=== PATIENT | female | born 1990 | race Caucasian/White ===

== ENCOUNTER → 2023-12-06 11:10 | Outpatient (BNVA) | payer SELFPAY | PROVIDERS: PCP Nurse Practitioner Family; Visit Provider Nurse Practitioner Family | DX: F20.9 Schizophrenia, unspecified (principal); B19.20 Unspecified viral hepatitis C without hepatic coma | CPT/HCPCS: 80053; 80061; 84443; 85025; 86705; 86706; 86709; 86803; 87340; 87522; 87902 ==

== ENCOUNTER → 2024-02-28 14:15 | Outpatient (BNVA) | payer MEDICAID, SELFPAY | PROVIDERS: PCP Nurse Practitioner Family; Visit Provider Family Medicine | DX: B19.20 Unspecified viral hepatitis C without hepatic coma (principal) | CPT/HCPCS: 87522; 87806 ==

== ENCOUNTER 2024-03-08 09:55 | Emergency (ER) | payer MEDICAID, SELFPAY ==
[2024-03-08 10:08] VITALS: BP 108/88; PULSE 78; RESP 17; TEMP 36.6; O2SAT 96; BMI 34.4
--- NOTE | 2024-03-08 10:18 | XR_ITS ---
WS: [id number] XR lumbar spine 2-3V* [id number] REASON FOR EXAM: back pain FINDINGS: Normal lumbar curvatures. No focal vertebral body abnormality. Mild narrowing of the L4-L5 and L5-S1 disc spaces with mild endplate sclerosis and osteophytosis. No significant listhesis. XR/XR lumbar spine 2-3V* [id number] IMPRESSION: Mild degenerative spondylosis in the lower lumbar spine as above. No acute abno rmality.
--- NOTE | 2024-03-08 10:25 | ED_ITS ---
HPI - Back Pain/Injury General: Chief Complaint: Back Pain/Injury Stated Complaint: low back pain Time Seen by Provider: 03/08/24 10:08 Source: patient Mode of arrival: ambulatory Limitations: no limitations History of Present Illness: 33-year-old female states she has been h aving back pain over the last 2 days she is felt like she has had spasms in her back started after carrying some groceries states that its mainly on the left side and some radiation down her left leg it is worse in the morning when she wakes up and improves throughout the day denies any bowel or bladder incontinence PFS ED PFSH: Medical History History of endometriosis Migraine Insomnia Anxiety and depression Schizophrenia Surgical History History of amputation of finger partial; right hand digit 5 History of tonsillectomy History of oophorectomy removed right side from endometriosis Social History Smoking and tobacco/nicotine status: current every day tobacco/nicotine user Course Vital Signs: Vital signs: Vital Signs Temperature 97.8 F 03/08/24 10:08 Pulse Rate 78 03/08/24 10:08 Respiratory Rate 17 03/08/24 10:31 Blood Pressure 108/88 03/08/24 10:08 Pulse Oximetry 98 03/08/24 10:31 MDM - Back Pain/Injury Medical Decision Making Patient presents with back pains likely muscle spasms with sciatica did give her Decadron here we will place her on anti-inflammatories along with muscle relaxant she is to ice rash she stable for discharge follow-up with PCP return if worsening Medical Records I reviewed the patient's medical records. Labs Radiology Impressions Lumbar Spine X-Ray 03/08/24 10:18 IMPRESSION: Mild degenerative spondylosis in the lower lumbar spine as above. No acute abnormality. All radiology interpretation(s) finalized by discharge Discharge Plan Discharge Patient Disposition: Home Clinical Impression: Strain of lumbar region Condition: Stable Prescriptions: New methocarbamol 750 mg tablet 750 mg PO Q6H PRN (Reason: spasms) Qty: 20 0RF Naprosyn 500 mg tablet 500 mg PO BID PRN (Reason: pain) Qty: 20 0RF No Action clindamycin phosphate 1 % swab 1 applic topical BID Qty: 60 0RF sumatriptan succinate [Imitrex] 100 mg tablet See Rx Instructions PO .COMPLEX Qty: 10 2RF Rx Instructions: take 1 tab at onset of headache; if no relief, may repeat 1 tab after at least 2 hrs; max = 2 tabs/24 hrs PO rizatriptan 10 mg tablet,disintegrating See Rx Instructions .ROUTE .COMPLEX Rx Instructions: TAKE ONE TABLET BY MOUTH AT THE ONSET of HEADACHE; if no RELIEF MAY REPEAT ONE TABLET AFTER atleast TWO hours. Sprintec (28) 0.25-35 mg-mcg tablet 1 tab PO QAM Seroquel 50 mg tablet 50 mg PO BEDTIME Mavyret 100-40 mg tablet 3 tab PO QAM Rx Instructions: must administer with a meal/food Nurtec ODT 75 mg tablet,disintegrating 75 mg PO DAILY PRN (Reason: Headache) Discharge Orders: Discharge ED (Routine); Ordered 03/08/24 Ordered By: Waqas Salinas Referrals: Yaneli Rojas FNP [Primary Care Provider] - Discharge Diet: Advance as tolerated Discharge Activity: Resume usual activity Patient Instructions: Low Back Strain (ED) Coding Level of Care Code ED Career Placement Services Counselor for Ericka Howell
[2024-03-08] MEDS: naproxen 500 mg Tablet PO (10:29)
[2024-03-08] MEDS: dexamethasone 10 mg/mL INJ IM (10:30)
[2024-03-08] MEDS: methocarbamol 750 mg Tablet 1500 MG PO (10:30)
[2024-03-08 10:31] VITALS: RESP 17; O2SAT 98
[2024-03-08] MEDS: morphine 4 mg/mL SDV 1 mL IM (10:31)
[2024-03-08 11:47] VITALS: BP 113/75; PULSE 75; RESP 18; TEMP 36.6; O2SAT 98
== END 2024-03-08 11:48 | disposition home or self-care (01) ==
PROVIDERS: Emergency Provider Emergency Medicine; PCP Nurse Practitioner Family
DX: S39.012A Strain of muscle, fascia and tendon of lower back, initial encounter (principal); Z72.0 Tobacco use; X50.0XXA Overexertion from strenuous movement or load, initial encounter
CPT/HCPCS: 72100; 96372; 99284; J1100; J2270

== ENCOUNTER → 2024-05-04 09:47 | Outpatient (BNVA) | payer MEDICAID, SELFPAY | PROVIDERS: PCP Nurse Practitioner Family; Visit Provider Nurse Practitioner Family | DX: Z30.9 Encounter for contraceptive management, unspecified (principal); B35.1 Tinea unguium | CPT/HCPCS: 80053; 81025 ==

== ENCOUNTER 2024-06-09 11:09 | Emergency (ER) | payer MEDICAID, SELFPAY ==
[2024-06-09 11:26] VITALS: BP 148/105; PULSE 77; RESP 16; TEMP 36.8; O2SAT 99; BMI 34.4
--- NOTE | 2024-06-09 11:28 | W.ED.HA ---
HPI - Headache General: Chief Complaint: Headache Stated Complaint: migraine Time Seen by Provider: 06/09/24 11:16 Source: patient Mode of arrival: ambulatory Limitations: no limitations History of Present Illness: Patient is a 33-year-old female presents to ED today with complaint of a migraine headache. She states she has a longstanding history of migraine headaches. She states she can normally take Nurtec at home however she is out of this medication and has not scheduled for a refill until Wednesday. Earlier today she states she took an Excedrin and half of a Sumatriptan. She states at its worst her headache was a 9/10. Currently upon arrival to the emergency department she is rating it a 6/10. She is having some nausea and photophobia which are typical for her migraine headaches. Patient states she does not see a neurologist. She states her headaches are managed by her primary care provider. MD elicited complaint: migraine Pertinent past history: migraines Onset (ago): hour(s) Severity: moderate Pain scale (0-10): 6 Exacerbating factors: light and noise Relieving factors: nothing Associated symptoms: Reports nausea and photophobia; Deny chest pain, confusion, fever(s), malaise, rash or vomiting Treatments prior to arrival: prescription analgesic and migraine medication Related Data Home Medications Medication Instructions Recorded Confirmed rimegepant 75 mg disintegrating 75 mg PO DAILY PRN Headache 03/08/24 06/09/24 tablet (Nurtec ODT) quetiapine 50 mg tablet 50 mg PO QPM 06/09/24 06/09/24 terbinafine HCl 250 mg tablet 250 mg PO DAILY 06/09/24 06/09/24 Previous Rx's Medication Instructions Recorded bupropion HCl 150 mg tablet,12 hr 150 mg PO BID #60 tabs 05/04/24 sustained-release norgestimate 0.25 mg-ethinyl 1 tab PO QAM #28 tabs 05/04/24 estradiol 35 mcg tablet (Sprintec (28)) Allergies Allergy/AdvReac Type Severity Reaction Status Date / Time Penicillins Allergy unknown Verified 04/06/24 09:15 Review of Systems Const: Denies: fever(s), chills, body aches, fatigue or malaise Eyes: Reports: photophobia; Denies: change in vision, blurry vision, floaters or seeing flashes Card: Denies: chest pain Resp: Denies: dyspnea GI: Reports: nausea; Denies: vomiting Musc: Denies: neck pain Skin/Breast: Denies: rash Neuro: Reports: headache(s); Denies: weakness in extremities, lack of coordination, difficulty walking, dizziness, confusion, behavioral changes, Slurred speech present or seizure-like activity PFSH ED PFSH: Medical History History of endometriosis Migraine Insomnia Anxiety and depression Schizophrenia Surgical History History of amputation of finger partial; right hand digit 5 History of tonsillectomy History of oophorectomy removed right side from endometriosis Social History Smoking and tobacco/nicotine status: never used tobacco/nicotine Physical Exam Const: COMMON NORMALS: no acute distress, patient oriented x3, no limitations, alert and well nourished GENERAL APPEARANCE: cooperative ORIENTATION/CONSCIOUSNESS: Yes awake, Yes oriented to person, Yes oriented to place and Yes oriented to time HENMT: COMMON NORMALS: normocephalic and atraumatic HEAD & SCALP: normal to inspection, normocephalic and atraumatic FACE & SINUS: normal facial exam and face symmetric Eye: GENERAL EYE: appearance normal, both eyes and all related structures DIRECT OPHTHALMOSCOPY: Yes photophobia Neck/C-Spine: COMMON NORMALS: full ROM and no meningeal signs GENERAL: Yes normal visual inspection Neuro: MARGARET COMA SCALE: document GCS findings Margaret coma scale eye opening: Spontaneous Margaret coma scale verbal response: Orientated [place] coma scale motor response: Obey commands [place] coma scale total score: 15 COMMON NORMALS: patient oriented x3, CN's II-XII intact bilaterally, moves all extremities, no focal motor deficits and no sensory deficits noted SENSORIUM/ORIENTATION: Yes alert, Yes oriented to person, Yes oriented to place and Yes oriented to time MENINGEAL SIGNS: Yes no meningeal signs Course Vital Signs: Vital signs: Vital Signs Temperature 98.2 F 06/09/24 11:26 Pulse Rate 77 06/09/24 11:26 Respiratory Rate 16 06/09/24 11:26 Blood Pressure 148/105 06/09/24 11:26 Pulse Oximetry 99 06/09/24 11:26 Oxygen Delivery Me thod Room Air 06/09/24 11:26 MDM - Headache Medical Decision Making Patient feeling much better after IV medications. Currently rating her headache at a 0?110. Patient will be allowed discharge with return precautions. Medical Records I reviewed the patient's medical records. No radiology studies performed this visit Discharge Plan Discharge Patient Disposition: Home Clinical Impression: Migraine Qualifiers: Migraine type: migraine (< 15 days per month) without aura Status migrainosus presence: without status migrainosus Intractability: not intractable Qualified Code(s): G43.009 - Migraine without aura, not intractable, without status migrainosus Condition: Stable Prescriptions: No Action bupropion HCl 150 mg tablet sustained-release 12 hr 150 mg PO BID Qty: 60 0RF Sprintec (28) 0.25-35 mg-mcg tablet 1 tab PO QAM Qty: 28 12RF quetiapine 50 mg tablet 50 mg PO QPM terbinafine HCl 250 mg tablet 250 mg PO DAILY Nurtec ODT 75 mg tablet,disintegrating 75 mg PO DAILY PRN (Reason: Headache) Discharge Orders: Discharge ED (Routine); Ordered 06/09/24 Ordered By: Virginia Sanchez Referrals: Yaneli Rojas FNP [Primary Care Provider] - Patient Instructions: Headache - Migraine (Adult), Migraine Headache (ED), Acute Headache (DC) Coding Level of Care Code ED Edge Polisher for Ericka Howell
[2024-06-09] MEDS: ondansetron 2 mg/ML SDV 2 mL 4 MG IVP (12:05)
[2024-06-09] MEDS: ketorolac 60 mg/2 mL INJ 30 MG IVP (12:06)
[2024-06-09] MEDS: dexamethasone 10 mg/mL INJ 8 MG IVP (12:07)
[2024-06-09] MEDS: diphenhydrAMINE 50 mg/mL SDV 1mL IVP (12:08)
[2024-06-09] MEDS: valproic acid inj 500 MG in sodium chloride 0.9% 50 ML 55 MG IV (12:56)
[2024-06-09 13:38] VITALS: BP 140/103; PULSE 79; O2SAT 98
[2024-06-09 13:56] VITALS: BP 136/99; PULSE 71; O2SAT 98
== END 2024-06-09 13:58 | disposition home or self-care (01) ==
PROVIDERS: Emergency Provider Physician Assistant; PCP Nurse Practitioner Family
DX: G43.009 Migraine without aura, not intractable, without status migrainosus (principal)
CPT/HCPCS: 96374; 96375; 99284; J1100; J1200; J1885; J2405; J3490

== ENCOUNTER → 2024-06-12 08:56 | Outpatient (BNVA) | payer MEDICAID, SELFPAY | PROVIDERS: PCP Nurse Practitioner Family; Visit Provider Nurse Practitioner Family | DX: B35.1 Tinea unguium (principal) | CPT/HCPCS: 80053 ==

== ENCOUNTER → 2024-06-22 13:24 | Outpatient (BNVA) | payer MEDICAID, SELFPAY | PROVIDERS: PCP Nurse Practitioner Family; Visit Provider Family Medicine | DX: B19.20 Unspecified viral hepatitis C without hepatic coma (principal) | CPT/HCPCS: 80053; 87522 ==

== ENCOUNTER → 2024-08-28 11:09 | Outpatient (BNVA) | payer MEDICAID, SELFPAY | PROVIDERS: PCP Nurse Practitioner Family; Visit Provider Family Medicine | DX: R05.9 Cough, unspecified (principal); J10.1 Influenza due to other identified influenza virus with other respiratory manifestations | CPT/HCPCS: 87400 ==

== ENCOUNTER → 2024-10-13 15:52 | Outpatient (BNVA) | payer MEDICAID, SELFPAY | PROVIDERS: PCP Nurse Practitioner Family; Visit Provider Nurse Practitioner Family | DX: R05.9 Cough, unspecified (principal); R31.9 Hematuria, unspecified; I87.8 Other specified disorders of veins | CPT/HCPCS: 71046; 74018; 81000 ==

== ENCOUNTER → 2024-11-08 12:06 | Outpatient (BNVA) | payer MEDICAID, SELFPAY | PROVIDERS: PCP Nurse Practitioner Family; Visit Provider Nurse Practitioner Women's Health | DX: Z01.419 Encounter for gynecological examination (general) (routine) without abnormal findings (principal) | CPT/HCPCS: 82306; 82465; 83036; 83718; 83721; 84443; 86592; 86705; 86706; 86709; 86803; 87340; 87522; 87624; 87806 ==

== ENCOUNTER 2024-11-09 09:52 | Outpatient (CLI) | payer MEDICAID, SELFPAY ==
--- NOTE | 2024-11-09 10:15 | CT_ITS ---
WS: [id number] CT ABDOMEN AND PELVIS NONCONTRAST HISTORY: N20.0 - Calculus of kidney TECHNIQUE: Imaging performed through the abdomen and pelvis. Coronal and sagittal reformats are submitted. All CT scans at [facility] use at least one of these dose optimization techniques: automated exposure control; mA and/or kV adjustment per patient size (includes targeted exams where dose is matched to clinical indication); or iterative reconstruction. DLP: 709.83 mGy.cm COMPARISON: KUB 10/13/2024 Lower thorax: Lung bases are clear. Visualized heart is normal. No hiatal hernia. Liver: Normal size liver. No mass or bile duct dilatation. Gallbladder: Contracted gallbladder with stones. No evidence for acute cholecystitis. No intrahepatic bile duct dilatation. Pancreas: Normal size and attenuation. Normal pancreatic duct. No pancreatitis or mass. Spleen: Normal size with granulomata. Adrenal glands: Normal. No mass. Right kidney: Normal size kidney with no mass or hydronephrosis. No ureteral dilatation. Left kidney: Normal size kidney with no mass or hydronephrosis. No ureteral dilatation. Aorta: Normal abdominal aorta, no aneurysm or atherosclerosis. No free fluid, intraperitoneal air or significant lymphadenopathy. GI tract: Normal noncontrast imaging of the stomach, small bowel and colon. No obstruction or wall thickening. Appendix not identified. Abdominal wall: Small umbilical hernia contains fat only. Pelvis: No free fluid or adenopathy. Numerous phleboliths are present bilaterally within the pelvis. Uterus is midline and anteverted. LEFT adnexal cystic mass measures 2.9 x 2.7 cm. Most consistent with a dominant follicle. Osseous structures: LEFT unilateral L5 pars defect. CT/CT kidney stone [id number] IMPRESSION: 1. No renal calcifications or ureteral calcifications. 2. Calcifications bilaterally within the pelvis are phleboliths. 3. Appendix not identified. 4. Contracted gallbladder with cholelithiasis. No evidence for acute cholecyst itis. Ultrasound evaluation may provide additional information.
== END 2024-11-09 09:53 | disposition home or self-care (01) ==
LOC: RAD 09:53
PROVIDERS: PCP Nurse Practitioner Family; Visit Provider Nurse Practitioner Family
DX: N20.0 Calculus of kidney (principal); I87.8 Other specified disorders of veins; K80.20 Calculus of gallbladder without cholecystitis without obstruction; D73.89 Other diseases of spleen; K42.9 Umbilical hernia without obstruction or gangrene; N83.202 Unspecified ovarian cyst, left side; M43.06 Spondylolysis, lumbar region
CPT/HCPCS: 74176

== ENCOUNTER 2024-11-22 07:27 | Outpatient (CLI) | payer MEDICAID, SELFPAY ==
--- NOTE | 2024-11-22 08:00 | US_ITS ---
WS: [id number] RIGHT UPPER QUADRANT ULTRASOUND HISTORY: R10.11 - Right upper quadrant pain COMPARISON: CT 11/09/2024 Liver: 13.7 cm in length. Normal size liver and echogenicity. No bile duct dilatation or mass. Portal Vein: Normal hepatopetal flow with monophasic waveform. Gallbladder: Mildly contracted gallbladder. Gallbladder wall is mildly thickened due to contraction. CBD: 0.3 cm Pancreas: Normal size and echogenicity. Right kidney: 9.9 cm in length. Normal size and echogenicity. No hydronephrosis or mass. Aorta and IVC: Unremarkable abdominal aorta and IVC. No ascites. US/US gall bladder [id number] IMPRESSION: 1. Cholelithiasis without acute cholecystitis. Numerous stones in a slightly c ontracted gallbladder. 2. No hepatobiliary duct dilatation.
== END 2024-11-22 07:28 | disposition home or self-care (01) ==
PROVIDERS: PCP Nurse Practitioner Family; Visit Provider Nurse Practitioner Family
DX: R10.11 Right upper quadrant pain (principal); K80.20 Calculus of gallbladder without cholecystitis without obstruction
CPT/HCPCS: 76705

== ENCOUNTER → 2024-11-29 10:27 | Outpatient (BNVA) | payer MEDICAID, SELFPAY | PROVIDERS: PCP Nurse Practitioner Family; Visit Provider Nurse Practitioner Family | DX: Z71.3 Dietary counseling and surveillance (principal) | CPT/HCPCS: 80053 ==

== ENCOUNTER 2024-12-29 11:38 | Emergency (ER) | payer MEDICAID, SELFPAY ==
[2024-12-29 11:43] VITALS: BP 113/76; PULSE 90; RESP 17; TEMP 36.4; O2SAT 100; BMI 31.3
--- NOTE | 2024-12-29 12:58 | W.ED.NECK ---
HPI - Neck Pain/Injury General: Chief Complaint: Neck Pain/Injury Stated Complaint: migraine Time Seen by Provider: 12/29/24 12:49 Source: patient Mode of arrival: ambulatory Limitations: no limitations History of Present Illness: Patient is a 34-year-old female presents to ED today with a complaint of headache and neck pain. Patient states that she has a longstanding history of migraine headaches and states she has been having worsening migraines over the past month or so. She feels like her neck is tight . This too has been an ongoing issue for several months. She has been seeking resident care assistant twice weekly over the past several weeks. She states her headache/neck pain last night was more significant than normal thus prompting her emergency evaluation. She does take prophylactic and abortive migraine medication but states she is having issues with her insurance covering some of this. She states her symptoms at time of my examination (currently rating them at a 6/10) is about the same as what she has been experiencing over the past several months. She has not had any new or worsening symptoms since her chiropractor manipulation. MD complaint: neck pain and other (headache) Onset (ago): month(s) (migraines for months) Place: home Severity: moderate and similar to prior neck pain Severity scale (1-10): 6 Quality: spasming and other ( tight ) Relieving factors: other (migraine medication) Exacerbating factors: none Associated symptoms: Reports no associated symptoms and headache(s); Denies difficulty walking, dizziness or nausea Treatments prior to arrival: none Related Data Previous Rx's ?Medication ?Instructions ?Recorded quetiapine 25 mg tablet (Seroquel) 25 mg PO DAILY #90 tabs 10/05/24 quetiapine 100 mg tablet (Seroquel) 100 mg PO DAILY #90 tabs 11/06/24 quetiapine 50 mg tablet (Seroquel) 50 mg PO DAILY #90 tabs 11/06/24 norelgestromin 150 mcg-e.estradiol 1 patch transdermal Q7D #3 ea 11/08/24 35 mcg/24 hr weekly transderm patch (Xulane) rimegepant 75 mg disintegrating 75 mg PO .every 48 hours #15 tabs 12/01/24 tablet (Nurtec ODT) tirzepatide (weight loss) 7.5 See Rx Instructions .Route 12/01/24 mg/0.5 mL subcutaneous pen injector .COMPLEX #2 mL ibuprofen 800 mg tablet 800 mg PO Q8H PRN pain #20 tabs 12/29/24 methocarbamol 500 mg tablet 1,000 mg (2 x 500 mg) PO Q8H #30 12/29/24 tabs Allergies Allergy/AdvReac Type Severity Reaction Status Date / Time Penicillins Allergy unknown Verified 12/19/24 13:45 Review of Systems Const: Denies: fever(s), chills, body aches, fatigue or malaise Eyes: Denies: change in vision, blurry vision, photophobia, floaters or seeing flashes Card: Denies: palpitations, lightheadedness, syncope or pre-syncope Resp: Denies: dyspnea GI: Denies: nausea or vomiting Musc: Reports: neck pain; Denies: back pain Neuro: Reports: headache(s); Denies: numbness in extremities, weakness in extremities, sensory changes, lack of coordination, difficulty walking, dizziness, vertigo, confusion, Slurred speech present or difficulty communicating thoughts PFS ED PFSH: Medical History History of endometriosis Migraine Insomnia Anxiety and depression Schizophrenia Surgical History History of amputation of finger partial; right hand digit 5 History of tonsillectomy History of oophorectomy removed right side from endometriosis Social History Smoking and tobacco/nicotine status: current every day tobacco/nicotine user (1.5 PPD) Physical Exam Const: COMMON NORMALS: no acute distress, average body habitus, patient oriented x3, no limitations, healthy appearing, alert and well nourished GENERAL APPEARANCE: cooperative ORIENTATION/CONSCIOUSNESS: Yes awake, Yes oriented to person, Yes oriented to place and Yes oriented to time HENMT: COMMON NORMALS: normocephalic and atraumatic HEAD & SCALP: normal to inspection, normocephalic and atraumatic FACE & SINUS: normal facial exam and face symmetric Eye: COMMON NORMALS: Equal, round and reactive pupils present and EOMs intact bilaterally GENERAL EYE: appearance normal, both eyes and all related structures and normal light reflex PUPIL: Yes Equal, round and reactive pupils present DIRECT OPHTHALMOSCOPY: Yes normal light reflex OTHER: No Constantine's syndrome Neck/C-Spine: COMMON NORMALS: full ROM, no lymphadenopathy, supple, no meningeal signs, no JVD, Thyroid normal and No carotid bruits GENERAL: Yes normal visual inspection THYROID: Thyroid normal CERVICAL SPINE: Yes cervical ROM normal, No Cervical spine tenderness, No step off deformity and Yes Paracervical muscle tenderness Chest: COMMONS NORMALS: normal inspection of the chest Resp: COMMON NORMALS: normal respiratory effort and clear to auscultation bilaterally AUSCULTATION: clear to auscultation bilaterally Cardio: COMMON NORMALS: no JVD, regular rate and regular rhythm RATE: regular rate RHYTHM: regular rhythm Back/Pelvis: COMMON NORMALS: thoracic and lumbar spine normal to inspection and no thoracic nor lumbar tenderness Extremity: GENERAL: Yes normal exam except as noted OTHER: no cervical radiculopathy or weakness Neuro: MARGARET COMA SCALE: document GCS findings [place] coma scale eye opening: Spontaneous Margaret coma scale verbal response: Orientated Margaret coma scale motor response: Obey commands Margaret coma scale total score: 15 COMMON NORMALS: patient oriented x3, CN's II-XII intact bilaterally, moves all extremities, no focal motor deficits, no sensory deficits noted and gait normal SENSORIUM/ORIENTATION: Yes alert, Yes oriented to person, Yes oriented to place and Yes oriented to time MENINGEAL SIGNS: Yes no meningeal signs SPEECH: speech normal GAIT: Yes Normal gait present MOTOR EXAM: 5/5 motor strength present throughout Skin: COMMON NORMALS: no rashes or lesions noted GENERAL SKIN EXAM: no rashes or lesions noted Course Vital Signs: Vital signs: Vital Signs Temperature 97.5 F L 12/29/24 11:43 Pulse Rate 67 12/29/24 14:39 Respiratory Rate 16 12/29/24 14:39 Blood Pressure 115/78 12/29/24 14:39 Pulse Oximetry 98 12/29/24 14:39 Oxygen Delivery Me thod Room Air 12/29/24 11:43 MDM - Neck Pain/Injury Medical Decision Making Symptoms today seem to be consistent with the symptoms she has had over the past several weeks/months. She is not having any new symptoms since her recent chiropractor manipulation. At this time I do not suspect any vascular dissection. She got significant relief from IM medications given here. Will place on NSAIDs/muscle relaxers as I feel her neck pain is more musculoskeletal. She is agreeable to follow-up with primary care next week. Medical Records I reviewed the patient's medical records. Lab Data Radiology Impressions Cervical Spine X-Ray 12/29/24 13:12 Impression: Negative cervical spine. All radiology interpretation(s) finalized by discharge Discharge Plan Discharge Patient Disposition: Home Clinical Impression: Migraine, Musculoskeletal neck pain Condition: Stable Prescriptions: New methocarbamol 500 mg tablet 1,000 mg PO Q8H Qty: 30 0RF ibuprofen 800 mg tablet 800 mg PO Q8H PRN (Reason: pain) Qty: 20 0RF No Action quetiapine [Seroquel] 25 mg tablet 25 mg PO DAILY Qty: 90 1RF Rx Instructions: take with seroquel 150mg norelgestromin-ethin.estradiol [Xulane] 150-35 mcg/24 hr patch weekly 1 patch transdermal Q7D Qty: 3 10RF Rx Instructions: allow for early refills for continuous cycling tirzepatide (weight loss) 7.5 mg/0.5 mL pen injector See Rx Instructions .ROUTE .COMPLEX Qty: 2 1RF Dose Instruction: INJECT 5MG SUBCUTANEOUSLY WEEKLY Rx Instructions: INJECT 7.5MG SUBCUTANEOUSLY WEEKLY Nurtec ODT 75 mg tablet,disintegrating 75 mg PO .every 48 hours Qty: 15 5RF quetiapine [Seroquel] 100 mg tablet 100 mg PO DAILY Qty: 90 1RF Rx Instructions: take with 50mg to equal 150mg quetiapine [Seroquel] 50 mg tablet 50 mg PO DAILY Qty: 90 1RF Rx Instructions: take with seroquel 100mg to equal 150mg Discharge Orders: Discharge ED (Routine); Ordered 12/29/24 Ordered By: Virginia Sanchez Referrals: Yaneli Rojas, [facility] [Primary Care Provider, Family Practice] Activity Restrictions/Additional Instructions: As we discussed, please follow-up with primary care next week for further evaluation of symptoms. You may return to the emergency department at anytime for any further concerns you may have. Print Language: Arabic Coding Level of Care Code ED Nurse Discharge Planner for Ericka Howell
[2024-12-29] MEDS: ketorolac 30 mg/mL INJ 60 MG IM (13:12)
[2024-12-29] MEDS: dexamethasone 10 mg/mL INJ IM (13:12)
[2024-12-29] MEDS: orphenadrine 30 mg/mL Inj 2 mL 60 MG IM (13:12)
--- NOTE | 2024-12-29 13:12 | XR_ITS ---
WS: [id number] Cervical spine, 4 views, 12/29/2024 Clinical Data: neck pain Comparison: Cervical spine, 02/14/2006 Findings: No compression fractures are seen. The disc heights are normal. There is no prevertebral soft tissue swelling. The odontoid is unremarkable. The soft tissues of the neck and the lung apices are normal. XR/XR cervical spine 3V* [id number] Impression: Negative cervical spine.
[2024-12-29 14:39] VITALS: BP 115/78; PULSE 67; RESP 16; O2SAT 98
== END 2024-12-29 14:44 | disposition home or self-care (01) ==
PROVIDERS: Emergency Provider Physician Assistant; PCP Nurse Practitioner Family
DX: G43.909 Migraine, unspecified, not intractable, without status migrainosus (principal); M54.2 Cervicalgia; F17.210 Nicotine dependence, cigarettes, uncomplicated
CPT/HCPCS: 72040; 96372; 99284; J1100; J1885; J2360

== ENCOUNTER 2025-01-15 09:19 | Day surgery (SDC) | payer MEDICAID, SELFPAY ==
[2025-01-15] VITALS (19 sets, daily range): BP systolic 101–133; BP diastolic 56–80; PULSE 67–84; RESP 16–27; TEMP 36.1–37.1; O2SAT 93–100; BMI 31.3
[2025-01-15 10:01] LABS: OR HCG Qualitative Urine Negative (Negative)
--- NOTE | 2025-01-15 10:04 | P.ANESASSM_ITS ---
Pre-Anesthetic Assessment Height/Weight: Height 5 ft 7 in Weight 200 lb Temp Pulse Resp BP Pulse Ox O2 Del Method 98.8 F 70 16 122/77 98 Room Air 01/15/25 09:27 01/15/25 09:27 01/15/25 09:27 01/15/25 09:27 01/15/25 09:27 01/15/25 09:50 Preop Diagnosis: chronic cholecystitis Operation Date: 01/15/25 10:50 Proposed Procedures p Laparoscopic POSSIBLE OPEN Cholecystectomy 55119 K82.9(Not Applicable) - Nazario Gregory MD Was Beta [place] taken within 24 hours: N/A Was Clonidine taken within 24 hours: N/A Last intake: Intake Last Liquid Date 01/14/25 Last Liquid Time 17:00 Last Solid Date 01/14/25 Last Solid Time 21:00 Social Tobacco and No alcohol Exam alert, oriented x 3, clear to auscultation bilaterally and regular rate & rhythm Airway Submandibular: within normal limits Cervical ROM: within normal limits Mallampati: Class III Dentition: full Anesthetic Plan ASA status: 3 Anesthesia: General Other: No prior issues with anesthesia NPO since yesterday evening. History of schizophrenia Patient takes Mounjaro for weight loss. Last taken 6 days ago. Kssyq-lp-[id number] ultrasound performed at bedside in preop. Grade 1 stomach Plan for GETA with RSI Medications/Allergies Home Medications ?Medication ?Instructions ?Recorded ?Confirmed ?Last Taken ?Type quetiapine 25 mg tablet (Seroquel) 25 mg PO DAILY #90 tabs 10/05/24 01/15/25 01/14/25 Rx quetiapine 100 mg tablet (Seroquel) 100 mg PO DAILY #9 0 tabs 11/06/24 01/11/25 01/14/25 Rx quetiapine 50 mg tablet (Seroquel) 50 mg PO DAILY #90 tabs 11/06/24 01/11/25 01/14/25 Rx norelgestromin 150 mcg-e.estradiol 1 patch transdermal Q7D #3 ea 11/08/24 01/11/25 01/10/25 Rx 35 mcg/24 hr weekly transderm patch (Xulane) rimegepant 75 mg disintegrating 75 mg PO .every 48 tessa rs #15 tabs 12/01/24 01/11/25 01/14/25 [facility] diclofenac sodium 75 mg 75 mg PO BID PRN pain #60 ta bs 01/03/25 01/11/25 Rx tablet,delayed release methocarbamol 500 mg tablet 1,000 mg (2 x 500 mg) PO Q 8H #90 01/03/25 01/11/25 01/14/25 Rx tabs prednisone 20 mg tablet 20 mg PO BID #10 tabs 01/11/25 Unknown Rx tirzepatide (weight loss) 7.5 7.5 mg SUBCUT .WEEK 12/3101/11/25 01/09/25 History mg/0.5 mL subcutaneous pen injector Allergies Allergy/AdvReac Type Severity Reaction Status Date / Time Penicillins Allergy unknown Verified 01/03/25 08:08 [facility] Anesthesia Medical History History of endometriosis Migraine Insomnia Anxiety and depression Schizophrenia Surgical History History of amputation of finger partial; right hand digit 5 History of tonsillectomy History of oophorectomy removed right side from endometriosis Social History Smoking and tobacco/nicotine status: current every day tobacco/nicotine user (1.5 PPD)
--- NOTE | 2025-01-15 10:50 | W.PM.OPSUD ---
Surgery/Procedure H&P Update DATE OF PROCEDURE: January 15, 2025 DATE H&P PERFORMED: 01/03/25 H&P UPDATE INFORMATION: I have reviewed H&P completed within last 30 days, I have examined patient prior to procedure, No changes to prior documentation, Changes to prior documentation as noted here and Risks and benefits of the procedure reviewed PREOP DIAGNOSIS: chronic cholecystitis PLANNED PROCEDURE: Operation Date: 01/15/25 10:50 Proposed Procedures p Laparoscopic POSSIBLE OPEN Cholecystectomy 22730 K82.9(Not Applicable) - Nazario Gregory MD
[2025-01-15] MEDS: sodium chloride 0.9% 1,000 ML 30 ML IV (10:56)
[2025-01-15] MEDS: VANCOMYCIN ADD-Vantage 1,000 MG in 0.9% NaCl ADD-Vantage 250 ML 250 MG IV (10:56)
[2025-01-15] MEDS: scopolamine 1 mg PATCH 1 PATCH TRANSDERMA (11:06)
[2025-01-15] MEDS: lidocaine-epi 1% 20 mL INJ 10 ML INJECTION (12:58)
[2025-01-15] MEDS: BUPivacaine 0.25% INJ 10 mL INJECTION (12:59)
--- NOTE | 2025-01-15 13:01 | P.OP_ITS ---
Operative Report Date of procedure: January 15, 2025 Pre-op diagnosis: Symptomatic cholelithiasis Post-op findings: Normal biliary anatomy, chronic inflammatory changes at the level of the hepatocystic triangle Procedure done: Laparoscopic cholecystectomy Specimens removed/disposition: Gallbladder Surgeon: Nazario Gregory MD Sodium Methylate Operator: HAMIDA OR Staff Estimated blood loss: 5 Brief History: 34-year-old female with history of biliary colic who presents for cholecystectomy. After discussion of all risk benefits of decided to proceed with a lap jyoti Procedure: Patient was brought into the OR, she was placed in a supine position. General anesthesia was given. The abdomen was prepped and draped in the usual sterile fashion. A timeout was conducted. I accessed the abdomen via a 5 mm Optiview port in the left upper quadrant. Initial pneumoperitoneum was obtained and no evidence of visceral injury during entry was noted. At 12 mm trocar was placed in the supraumbilical position under direct visualization. Additional 5 mm trocars were placed in the epigastrium right upper quadrant and right flank under direct visualization. The gallbladder was grasped from the fundus and retracted cephalad, I then grasped the infundibulum and retracted in the inferolateral direction exposing the hepatocystic triangle. The peritoneum anterior to the hepatocystic triangle was opened with electrocautery, I carried this opening in the medial and lateral direction to the edges of the liver and then on the sides of the gallbladder to allow for better exposure. With careful blunt dissection as well as electrocautery I was able to encircle the cystic duct and artery, I also elevated lower third of the gallbladder from the liver bed, thus creating a critical view of safety. The cystic duct and artery were double clipped proximally and single clipped distally and transected. The gallb ladder was removed from the liver bed using electrocautery. The gallbladder was retrieved in an Endo Catch bag via the umbilical trocar site. The liver bed and clips were inspected the area was hemostatic, there was no evidence of bile leak the clips appeared to be in good position. The liver bed was irrigated and suctioned. The umbilical trocar was removed and umbilical trocar site was closed with a 0 Vicryl Spike-Brianna suture passer under direct visualization. The epigastrium right upper quadrant right flank trocars were removed under direct visualization, the left upper quadrant trocar was used to evacuate the pneumoperitoneum and subsequently removed. Local anesthesia was infiltrated. Hemostasis was achieved from the trocar sites. The wounds were closed in layers using #3-0 Vicryl for the subcutaneous tissue #4 Monocryl for the skin. At the end of the procedure all counts were correct, the patient tolerated well the procedure was transferred to the PACU in stable condition.
[2025-01-15] MEDS: ondansetron 2 mg/ML SDV 2 mL 4 MG IVP (13:27)
[2025-01-15] MEDS: HYDROmorphone 1 mg/mL INJ 1ml 0.5 MG IVP ×2 (13:36→13:47)
[2025-01-15] MEDS: oxyCODONE 5 mg IR Tab/Cap PO (14:30)
--- NOTE | 2025-01-15 15:06 | ANE.PACU2 ---
Inpatient post-anesthesia follow up: Airway intact: Yes Vital signs: Temperature 97 F Pulse Rate 75 Respiratory Rate 16 Blood Pressure 133/71 Pulse Oximetry 98 Oxygen Delivery Me thod Room Air Oxygen Flow Rate Fraction of Inspir ed Oxygen Hydration adequate: Yes Nausea and vomiting: No Pain level: 2 Mental status: Baseline
== END 2025-01-15 15:15 | disposition home or self-care (01) ==
PROVIDERS: Student in an Organized Health Care Education/Training Program; PCP Nurse Practitioner Family; Visit Provider Surgery
PROC: 0FT44ZZ Resection of Gallbladder, Percutaneous Endoscopic Approach (ICD-10-PCS; CPT 47562; principal; 2025-01-15 10:40)
DX: K80.10 Calculus of gallbladder with chronic cholecystitis without obstruction (principal); Z86.59 Personal history of other mental and behavioral disorders; F17.200 Nicotine dependence, unspecified, uncomplicated
CPT/HCPCS: 47562; 81025; 88304; A4216; J0330; J1100; J1171; J1885; J2250; J2405; J2704; J3010; J3370; J3490; J7030; J7050; J9999

== ENCOUNTER → 2025-02-22 14:12 | Outpatient (BNVA) | payer MEDICAID, SELFPAY | PROVIDERS: PCP Nurse Practitioner Family; Visit Provider Nurse Practitioner Family | DX: B35.1 Tinea unguium (principal) | CPT/HCPCS: 80053 ==

== ENCOUNTER → 2025-05-03 15:08 | Outpatient (BNVA) | payer MEDICAID, SELFPAY | PROVIDERS: PCP Nurse Practitioner Family; Visit Provider Nurse Practitioner Family | DX: B19.20 Unspecified viral hepatitis C without hepatic coma (principal) | CPT/HCPCS: 80053 ==

== ENCOUNTER 2025-05-16 11:26 | Emergency (ER) | payer MEDICAID, SELFPAY ==
--- OUTSIDE RECORDS SUMMARY | 2024-01-22 04:00 | XMS_ITS ---
Author Organization [facility] Address [address] [place] [address] Care Team Providers Care Transactional Attorney Name Role Phone Alejandra Kam APN Primary Care Provider Tucker Elliott Unavailable [phone] Migration, Provider Unavailable Unavailable REASON FOR VISIT EMR-Jose E Encounters Encounter Location Date Provider Diagnosis Migrated_Facility 0 0 01/22/2024 Provider Migration Plan Of Treatment No Information Progress Notes * Ирина VAUGHAN EDOB: 9 (34 yo F)Acc No.[id number]:01/22/2024 Patient: Mynor CUEVASИрина WICK :1990 A ge:33 Y S ex:Female Address:[address] [place] [address] Subjective: * Chief Complaints: * E MR-Jose E * * Date:
--- OUTSIDE RECORDS SUMMARY | 2024-01-23 04:00 | XMS_ITS ---
Author Organization [facility] Address [address] [facility] [place] [address] Care Team Providers Care Supervisor Special Education Name Role Phone Alejandra Kam APN Primary Care Provider Tucker Elliott Unavailable [phone] Migration, Provider Unavailable Unavailable Allergies Allergen (clinical [...] MG Oral Tablet [Seroquel] ORAL *Reorder from [facility] for eRx and Interaction Alerts* 01/04/2019 Active ropinirole 0.5 MG Oral Tablet ORAL *Reorder from [facility] for eRx and Interaction Alerts* 01/04/2019 Active Citalopram 40 MG Oral Tablet ORAL *Reorder from [facility] for eRx and Interaction Alerts* 01/04/2019 Active [...] Ирина VAUGHAN EDOB: 9 (34 yo F)Acc No.[id number]:01/23/2024 Patient: Ирина BRADY :1990 A ge:33 Y S ex:Female Address:[address] [place] [address], [place] [address] Subjective: * Chief Complaints: * E MR-Jose [...] ORAL , Notes to Pharmacist: *Reorder from [facility] for eRx and Interaction Alerts*Citalopram 40 MG Oral Tablet ORAL , Notes to Pharmacist: *Reorder from [facility] for eRx and Interaction Alerts*quetiapine 200 MG Oral Tablet [Seroquel] ORAL , Notes to Pharmacist: *Reorder from [facility] for eRx and Interaction Alerts*Taking Fluconazole 150 MG Tablet Oral , stop date 01/06/2019Taking Nitrofurantoin Macrocrystal 100 MG Capsule Oral , stop date 01/28/2019Taking ropinirole 0.5 MG Oral Tablet ORAL , Notes to Pharmacist: *Reorder from [facility] for eRx and Interaction Alerts*Taking Citalopram 40 MG Oral Tablet ORAL , Notes to Pharmacist: *Reorder from [facility] for eRx and Interaction Alerts*Taking quetiapine 200 MG Oral Tablet [Seroquel] ORAL , Notes to Pharmacist: *Reorder from [facility] for eRx and Interaction Alerts* * Allergies: P enicillin V Potassium: Allergy - Onset Date 01/04/2019Penicillin: Allergy * * Date:
[2025-05-16 11:30] VITALS: BP 154/83; PULSE 95; RESP 16; TEMP 36.8; O2SAT 100; BMI 32.8
--- OUTSIDE RECORDS SUMMARY | 2025-05-16 11:57 | XMS_ITS | Encounter Summary ---
Author Organization [facility] Address [address] [place] [address] Care Team Providers Care Supervisor Electron Tube Processing Name Role Phone Nazario Tovar DO Primary Care Provider [phone] Encounter Details Date Type Department Care Team (Late st Contact Info) Description 07/07/2004 Emergency [facility] Emergency Department [address] [place] [address] Nat Raman MD [address] [place] [id number] SPRAIN OF NECK (Primary Dx) Social History Tobacco Use Types Packs/Day Years Used Date Smoking Tobacco: Never Assessed Comments Unknown Sex and Gender Information Value Date Recorded Sex Assigned at Not on file Legal Sex Female 3:13 AM [employer] Gender Identity Not on file Sexual Orientation Not on file documented as of this encounter Plan of Treatment Not on file documented as of this encounter Visit Diagnoses Diagnosis Sprain of neck- Primary documented in this encounter Care Teams Supervisor Electron Tube Processing Relationship Specialty Start Date End Date Nazario Tovar DO [address] [place] [address] PCP - General 07/07/04 02/22/18 documented as of this encounter
--- OUTSIDE RECORDS SUMMARY | 2025-05-16 11:58 | XMS_ITS | Patient Health Record ---
Author Organization [facility] Address [address] [place] [address] Care Team Providers Care Cloth Winder Name Role Phone Alejandra Kam APN Primary Care Provider Tucker Elliott Unavailable [phone] Allergies Allergen (clinical drug ingredient) Drug/Non Drug Allergy documented on EMR Reaction Allergy Type Onset Date Status penicillin V Penicillin V Potassium Unknown Drug Allergy 0 01/04/2019 active Penicillin Unknown Drug Allergy Active Reason For Referral No Information Medications Medication SIG (Take, Route, Frequency, Duration) Notes Start Date End Date Status quetiapine 200 MG Oral Tablet [Seroquel] ORAL *Reorder from [facility] for eRx and Interaction Alerts* 01/04/2019 Active ropinirole 0.5 MG Oral Tablet ORAL *[facility] Alert[facility]* 01/04/2019 Active Citalopram 40 MG Oral Tablet ORAL *Reorder from [facility] for eRx and Interaction Alerts* 01/04/2019 Active Doxycycline Hyclate 100 MG Capsule 1 capsule Orally Twice a day; Duration: 10 day(s) 07/04/2020 Active Flagyl 500 MG Tablet 1 tablet Orally twice a day; Duration: 10 day(s) 07/04/2020 Active Phentermine HCl 37.5 MG Tablet 1 tablet Orally Once a day Active Colace 100 MG Capsule 1 capsule as needed Orally twice a day; Duration: 30 day(s) 07/04/2020 Active Immunizations Vaccine Route Administration Date Status Comme nts Influenza (whole), CPT 96406 Inactive Unknown 05/04/2019 Administered Social History Tobacco Use: Social History Observation Description Date Details (start date - stop date) Current Smoker NA - NA Social History Depression Screening Social Info Question Answer Notes PHQ-9 Little interest or pleasure in doing thin gs Not at all Feeling down, depressed, or hopeless Not at all Trouble falling or staying asleep, or sleeping t oo much Not at all Feeling tired or having little energy Not at all Poor appetite or overeating Not at all Feeling bad about yourself, or that you are a failure, or have let yourself or your family down Not at all Trouble concentrating on thi ngs, such as reading the newspaper or watching television Not at all Moving or speaking so slowly that other people could have noticed. Or the opposite ? being so fidgety or restless that you have been moving around a lot more than usual Not at all Thoughts that you would be b srinivas off , or of hurting yourself in some way Not at all Total Score 0 Drugs/Alcohol: Social Info Question Answer Notes Alcohol Screen (Audit-C) Did you have a drink containing alcohol in the past year? Yes How often did you have a drink containing alcohol in the past year? 4 or more times a week (4 points) How many drinks did you have on a typical day when you were drinking in the past year? 1 or 2 drinks (0 point) How often did you have 6 or more drinks on one occasion in the past year? Never (0 point) Points 4 Interpretation Positive Drugs Have you used drugs other than those for medical reasons in the past 12 months? No Tobacco Use: Social Info Question Answer Notes xTobacco Use/Smoking Are you a current smoker How often do you smoke cigarettes? every day How many cigarettes a day do you smoke? 11-20 How soon after you wake up do you smoke your first cigarette? 31-60 minutes Are you interested in quitting? Not ready to quit Additional Details Category Social Info Options Details Migrated Social History Migrated Social History History of tobacco use : Current every day smoker , Alcohol intake : , Smoking Status : Current every day smoker zzMigrated Social History Migrated Social History Smoking Status:Smokes tobacco daily (finding) Problems Problem Type SNOMED Code ICD Code Onset Dates Problem Status W/U Status Risk Notes Problem Dyspareunia (42532988) Dyspareunia (N94.1) Active confirmed Problem Dysuria (00150196) Dysuria (R30.0) Active confirmed Problem Female urinary stress incontinence (07734438) PAYAM (stress urinary incontinence, female) (N39.3) Active confirmed Problem Vaginal odor (897643722) Vaginal odor (N89.8) Active confirmed Problem Cigarette smoker (88349469) Cigarette smoker (F17.210) Active confirmed Problem Vaginal pain (16470283) Vaginal pain (R10.2) Active confirmed Problem Constipation (92019051) Constipation (K59.00) Active confirmed Problem Vaginal discharge (912547317) Vaginal discharge (N89.8) Active confirmed Problem Female pelvic inflammatory disease (417043788) PID (pelvic inflammatory disease) (N73.9) Active confirmed Plan Of Treatment Pending Test Test Name Order Date Estradiol Level 79110 02/20/2020 Follicle Stimulating Hormone (FSH) 66724 02/20/2020 SYPHILIS TEST, QUAL (RPR) 42635 02/20/20 20 Thyroid Stimulating Hormone (TSH) 31353 02/20/2020 HIV 1/2 Ag/Ab Screen--[id number] 2019 Insurance Providers Payer Name Payer Address Payer Phone Subscriber Number Group Number Insured Name Patient Relationship to Insured Coverage Start Date Coverage End Date [place] [address] [place] [phone] [id number] Ирина Cooper Self - patient is the insured 0 [place] [address] [place] [phone] [id number] Ирина Cooper Self - patient is the insured 0 Medications Administered Medication Instructions Date of Administration Dosage Notes Ceftriaxone 07/04/2020 1 g Medical (General) History Medical History History ICD Code Morbid obesity Tobacco user Surgical History Surgery Date(Month/Year) left oophorectomy kidney stone 2019 tonsillectomy 2000 right finger 1994 Hospitalization History Reason Date(Month/Year) see surgical list
--- OUTSIDE RECORDS SUMMARY | 2025-05-16 11:58 | XMS_ITS | Clinical Summary ---
Author Organization [facility] Address [address] [place] [address] Phone Care Team Providers Care Refinery Operator Helper Crude Unit Name Role Phone Unavailable Primary Care Provider Unavailabl e Allergies Active Allergy Reactions Criticality Noted Date Comments Penicillins Rash Low 02/23/2018 Medications QUEtiapine (SEROquel) 200 mg tablet Take 1 Tablet (200 mg) by mouth daily at bedtime. 30 Tablet 1 10/12/2018 10:05 AM CDT 10/12/2018 Active ARIPiprazole (ABILIFY) 5 mg tablet Take 1 Tablet (5 mg) by mouth daily at bedtime. 30 Tablet 1 10/12/2018 10:05 AM CDT 10/12/2018 Active Active Problems Problem Noted Date Diagnosed Date Bipolar affective disorder, currently manic, mod erate 10/09/2018 Immunizations Immunization Administration Dates Next Due (ADACEL/BOOSTRIX)(10 YR UP) TDAP VACCINE, 0.5ML, IM 09/02/2018 (M-M-R II/PRIORIX)(12 MO UP) MEASLES, MUMPS AND RUBELLA VIRUS VACCINE, 0.5 ML IM/SUBCUT 08/12/1994,04/20/1991 (TDVAX)(7 YRS UP) TETANUS AN D DIPHTHERIA TOXOIDS, ADSORBED (2 LF OF TETANUS TOXOID AND 2 LF OF DIPHTHERIA TOXOID), 0.5ML (PF), IM 10/08/2004 Dt Dtp Dtap Vaccine 08/12/1994, 0,04/22/1990,1989 HIB, Unspecified Formulation 08/12/1994,06/10/19 90,04/20/1990 Hepatitis A Vaccine 10/16/1998,05/20/1998,1997 Hepatitis B Vaccine 03/16/1995,09/23/1994,1994 IPV/OPV 08/12/1994, 0,04/22/1990,1989 Social History Tobacco Use Types Packs/Day Years Used Date Smoking Tobacco: Every Day Cigarettes Smokeless Tobacco: Never Alcohol Use Standard Drinks/Week Comments Yes 0 (1 standard drink = 0.6 oz pur e alcohol) 3 times per week Comments No Sex and Gender Information Value Date Recorded Sex Assigned at Not on file Legal Sex 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 Gender Identity Not on file Sexual Orientation Not on file Last Filed Vital Signs Vital Sign Reading Time Taken Comments Blood Pressure 132/88 10/11/2018 8:00 PM CDT Pulse 81 10/11/2018 8:00 PM CDT Temperature 37.2 C (99 F) 10/11/2018 8:00 PM CDT Respiratory Rate 17 10/11/2018 8:00 PM CDT Oxygen Saturation 99% 10/11/2018 8:00 PM CDT Inhaled Oxygen Concentration - - Weight 88.7 kg (195 lb 9.6 oz) 10/08/2018 12:00 AM HEAVY EQUIPMENT SALES MANAGER Height 170.2 cm (5' 7 ) 10/08/2018 12:00 AM HEAVY EQUIPMENT SALES MANAGER Body Mass Index 30.64 10/08/2018 12:00 AM HEAVY EQUIPMENT SALES MANAGER Plan of Treatment Health Maintenance Due Date Last Done Comments HPV/Cotest (21-29) 2010 HPV VACCINES (1 - 3-dose SCD M series) 2016 CERVICAL CANCER SCREENING 2019 HPV/Cotest (30-65) 2019 PAP SMEAR 2019 INFLUENZA VACCINE (#1) 2025 DTAP/TDAP/TD VACCINES (6 - T d or Tdap) 09/02/2028 09/02/2018, 10/08/2004, 08/12/1994, Additional history exists HEPATITIS B VACCINES Completed 03/16/1995, 09/23/1994, 08/12/1994 [place] Advance Directives For more information, please contact: [phone] * Full Code (Latest Code Status on File) Date Activated Date Inactivated Comments 10/08/2018 1:06 AM 10/12/2018 2:32 PM
--- OUTSIDE RECORDS SUMMARY | 2025-05-16 11:58 | XMS_ITS | Clinical Summary ---
Author Organization [email or web address] Address [address] [facility] Attn: Epic Prelude ADT MELINDA MARY [address] Care Team Providers Care Pan Devulcanizer Name Role Phone Unavailable Primary Care Provider Unavailabl e Allergies Active Allergy Reactions Criticality Noted Date Comments Penicillins Rash Low 02/23/2018 Medications ARIPiprazole (ABILIFY) 5 mg tablet Take 1 Tablet (5 mg) by mouth daily at bedtime. 30 Tablet 1 10/12/2018 Active QUEtiapine (SEROquel) 200 mg tablet Take 1 Tablet (200 mg) by mouth daily at bedtime. 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
--- OUTSIDE RECORDS SUMMARY | 2025-05-16 11:58 | XMS_ITS | Patient Health Record ---
Author Organization [facility] Address [address] [place] [id number] Care Team Providers Care Manager Care Name Role Phone Gary Adilia Primary Care Provider [phone] Allergies Allergen (clinical drug ingredient) Drug/Non Drug Allergy documented on EMR Reaction Allergy Type Onset Date Status Penicillin G Benzathine Unknown Drug Allergy Active Reason For Referral No Information Medications Medication SIG (Take, Route, Frequency, Duration) Notes Start Date End Date Status Citalopram Hydrobromide 40 MG Oral; Duration: 30 days [facility] Not-Taking Tessalon Perles 100 MG 1 capsule as needed Orally Three times a day; Duration: 5 days 01/23/2020 Not-Taking Multivitamins one tablet Orally daily Active Ibuprofen 800 MG 1 tablet with food or milk as needed Orally three times a day (tid) as needed (prn) PRN Active Phentermine HCl 37.5 MG 1 capsule Orally Once a day; Duration: 30 days Active cyclobenzaprine hcl 10 MG 1 tablet Orally Three times a day as needed; Duration: 7 days 04/09/2020 Active Omeprazole 20 MG 1 capsule 30 minutes before morning meal Orally Once a day; Duration: 30 day(s) 03/06/2020 Active Terbinafine 1 % as directed Externally twice a day (bid); Duration: 30 days 09/29/2016 Not-Taking Fluticasone Propionate 50 MCG/ACT 1 spray in each nostril Nasally Once a day; Duration: 30 day(s) Not-Taking flonase allergy relief 50 MCG/ACT 1 puff in each nostril Nasally Once a day; Duration: 30 day(s) 12/06/2015 Not-Taking Azithromycin 250 MG 2 tablet on the first day, then 1 tablet amira Orally Once a day; Duration: 5 day(s) Not-Taking Milk of Magnesia 1200 MG/15ML 15 ml as needed Orally Four times a day; Duration: 5 days 08/14/2015 Not-Taking Mirtazapine 30 mg 1 tablet at bedtime Orally Once a day; Duration: 30 day(s) pt states making legs swell 11/12/2017 Not-Taking Immunizations Vaccine Route Administration Date Status Comme nts Flu Vac Quad 0.5 PRIVATE IM Intramuscular 06/21/2015 Admin istered Social History Tobacco Use: Social History Observation Description Date Details (start date - stop date) Current Smoker NA - NA Sex Assigned At : Social History Observation Description Sex Assigned At Female - Question Answer Notes Did you have a drink contain ing alcohol in the past year? Yes How often did you have a dri nk containing alcohol in the past year? Two to three times a week (3 points) How often did you have six o r more drinks on one occasion in the past year? Never (0 points) Points 3 Interpretation Positive HARMONY Drug Questionnaire Question Answer Notes Have you used drugs other th an those for medical reasons in the past 12 months? No Do you smoke for age 13 and up Question Answer Notes Are you a: current smoker How often do you smoke cigarettes? every day How many cigarettes a day do you smoke? 11-20 How soon after you wake up do you smoke your fir st cigarette? 6-30 minutes Smokeless Tobacco Question Answer Notes Tobacco use other than smoking No Have you ever had an STD Question Answer Notes Have you ever had an STD No Prevention Strategies Discussed Other Problems Problem Type SNOMED Code ICD Code Onset Dates Problem Status W/U Status Risk Notes Problem Social phobia (83771208) Social phobia (300.23) Active confirmed Problem Infectious hepatitis (50461057) Hepatitis in other infectious diseases classified elsewhere (573.2) Active confirmed Problem Anemia (535534293) Anemia, unspecified (285.9) Active confirmed Problem Gastroesophageal reflux disease (416505564) GERD (gastroesophageal reflux disease) (K21.9) Active confirmed Problem Obesity (065412661) Obesity (E66.9) Active conf irmed Problem Dysmenorrhea (441233893) Dysmenorrhea (N94.6) Active confirmed Problem Hallucinations (3130307) Hallucinations (R44.3) Active confirmed Problem Primary insomnia (6802695) Primary insomnia (F51.01) Active confirmed Problem Insomnia (124242298) Insomnia, unspecified type (G47.00) Active confirmed Problem Migraine without aura (10961155) Migraine without aura and with status migrainosus, not intractable (G43.001) Active confirmed Problem Chronic hepatitis C (407256443) Chronic hepatitis C without hepatic coma (B18.2) Active confirmed Problem Methamphetamine abuse (192836210) Methamphetamine abuse (F15.10) Active confirmed Plan Of Treatment No Information Insurance Providers Payer Name Payer Address Payer Phone Subscriber Number Group Number Insured Name Patient Relationship to Insured Coverage Start Date Coverage End Date [facility] Private Option [address] [place] [id number] Ирина Cooper Self - patient is the insured Medicaid [address] [place] [id number] Ирина Cooper Self - patient is the insured Medications Administered Medication Instructions Date of Administration Dosage Notes Toradol 06/21/2015 60 mg Toradol 04/09/2020 60 mg Medical (General) History Surgical History Surgery Date(Month/Year) tonsillectomy finger surgery Hospitalization History Reason Date(Month/Year) surgery childbirth
[2025-05-16] MEDS: diphenhydrAMINE 50 mg/mL SDV 1mL 25 MG IVP (12:11)
[2025-05-16 12:29] VITALS: BP 114/85; PULSE 82; RESP 16; O2SAT 98
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
[2025-05-16 14:50] VITALS: BP 128/72; PULSE 82; RESP 16; TEMP 36.8; O2SAT 99
== END 2025-05-16 14:50 | disposition home or self-care (01) ==
PROVIDERS: Emergency Provider Student in an Organized Health Care Education/Training Program; PCP Nurse Practitioner Family
DX: S16.1XXA Strain of muscle, fascia and tendon at neck level, initial encounter (principal); R51.9 Headache, unspecified; Z72.0 Tobacco use; X58.XXXA Exposure to other specified factors, initial encounter
CPT/HCPCS: 96374; 96375; 99284; J0780; J1200; J7030; J9999

== ENCOUNTER 2025-05-18 22:15 | Emergency (ER) | payer MEDICAID, SELFPAY ==
--- OUTSIDE RECORDS SUMMARY | 2024-01-22 04:00 | XMS_ITS ---
Author Organization [facility] Address [address] [place] [address] Care Team Providers Care Stamp Clerk Name Role Phone Alejandra Kam APN Primary Care Provider Tucker Elliott Unavailable [phone] Migration, Provider Unavailable Unavailable REASON FOR VISIT EMR-Jose E Encounters Encounter Location Date Provider Diagnosis Migrated_Facility 0 0 01/22/2024 Provider Migration Plan Of Treatment No Information Progress Notes * Ирина VAUGHAN EDOB: 9 (34 yo F)Acc No.[id number]:01/22/2024 Patient: Mynor CUEVASИрина WICK :1990 A ge:33 Y S ex:Female Address:[address] [place] [address] Subjective: * Chief Complaints: * E MR-Jose E * * Date:
--- OUTSIDE RECORDS SUMMARY | 2024-01-23 04:00 | XMS_ITS ---
Author Organization [facility] Address [address] [facility] [place] [address] Care Team Providers Care Print Shop Manager Name Role Phone Alejandra Kam APN Primary Care Provider Tucker Elliott Unavailable [phone] Migration, Provider Unavailable Unavailable Allergies Allergen (clinical drug ingredient) Drug/Non Drug Allergy documented on EMR Reaction Allergy Type Onset Date Status penicillin V Penicillin V Potassium Unknown Drug Allergy 0 01/04/2019 active Penicillin Unknown Drug Allergy Active REASON FOR VISIT EMR-Jose E Medications Medication SIG (Take, Route, Frequency, Duration) Notes Start Date End Date Status quetiapine 200 MG Oral Tablet [Seroquel] ORAL *Reorder from [facility] for eRx and Interaction Alerts* 01/04/2019 Active ropinirole 0.5 MG Oral Tablet ORAL *Reorder from [facility] for eRx and Interaction Alerts* 01/04/2019 Active Citalopram 40 MG Oral Tablet ORAL *Reorder from [facility] for eRx and Interaction Alerts* 01/04/2019 Active Fluconazole 150 MG Tablet Oral 01/04/2019 01/06/2019 Active Nitrofurantoin Macrocrystal 100 MG Capsule Oral 01/21/2019 01/28/2019 Active Social History Social History Additional Details Category Social Info Options Details Migrated Social History Migrated Social History History of tobacco use : Current every day smoker , Alcohol intake : , Smoking Status : Current every day smoker Encounters Encounter Location Date Provider Diagnosis Migrated_Facility 0 0 01/23/2024 Provider Migration Plan Of Treatment No Information Progress Notes * Ирина VAUGHAN EDOB: 9 (34 yo F)Acc No.[id number]:01/23/2024 Patient: Ирина BRADY :1990 A ge:33 Y S ex:Female Address:[address] [place] [address], [place] [address] Subjective: * Chief Complaints: * E MR-Jose E * Family History: F ather: PRN - Father: :: Arthritis,,known absent , :: Hypertension,,known absent . M other: PRN - Mother: :: Multiple sclerosis,,known absent , :: Hypertension,,known absent . * Social History: M igrated Social History: M igrated Social History: History of tobacco use : Current every day smoker , Alcohol intake : , Smoking Status : Current every day smoker. * Medications: T akingFluconazole 150 MG Tablet Oral , stop date 01/06/2019Nitrofurantoin Macrocrystal 100 MG Capsule Oral , stop date 01/28/2019ropinirole 0.5 MG Oral Tablet ORAL , Notes to Pharmacist: *Reorder from [facility] for eRx and Interaction Alerts*Citalopram 40 MG Oral Tablet ORAL , Notes to Pharmacist: *Reorder from [facility] for eRx and Interaction Alerts*quetiapine 200 MG Oral Tablet [Seroquel] ORAL , Notes to Pharmacist: *Reorder from [facility] for eRx and Interaction Alerts*Taking Fluconazole 150 MG Tablet Oral , stop date 01/06/2019Taking Nitrofurantoin Macrocrystal 100 MG Capsule Oral , stop date 01/28/2019Taking ropinirole 0.5 MG Oral Tablet ORAL , Notes to Pharmacist: *Reorder from [facility] for eRx and Interaction Alerts*Taking Citalopram 40 MG Oral Tablet ORAL , Notes to Pharmacist: *Reorder from [facility] for eRx and Interaction Alerts*Taking quetiapine 200 MG Oral Tablet [Seroquel] ORAL , Notes to Pharmacist: *Reorder from [facility] for eRx and Interaction Alerts* * Allergies: P enicillin V Potassium: Allergy - Onset Date 01/04/2019Penicillin: Allergy * * Date:
--- OUTSIDE RECORDS SUMMARY | 2025-05-18 22:19 | XMS_ITS | Patient Health Record ---
Author Organization [facility] Address [address] [facility] [address] Care Team Providers Care Contract Assistant Name Role Phone Alejandra Kam APN Primary Care Provider Tucker Elliott Unavailable [phone] Allergies Allergen (clinical drug ingredient) Drug/Non Drug Allergy documented on EMR Reaction Allergy Type Onset Date Status penicillin V Penicillin V Potassium Unknown Drug Allergy 0 01/04/2019 active Penicillin Unknown Drug Allergy Active Reason For Referral No Information Medications Medication SIG (Take, Route, Frequency, Duration) Notes Start Date End Date Status quetiapine 200 MG Oral Tablet [Seroquel] ORAL *Reorder from [facility] for eRx and Interaction Alerts* 01/04/2019 Active ropinirole 0.5 MG Oral Tablet ORAL [facility] Alert[facility]* 01/04/2019 Active Citalopram 40 MG Oral Tablet ORAL *Reorder from [facility] for eRx and Interaction Alerts* 01/04/2019 [...] Date Status Comme nts Influenza (whole), CPT 18178 Inactive Unknown 05/04/2019 Administered Social History Tobacco [...] Status W/U Status Risk Notes Problem Dyspareunia (84499528) Dyspareunia (N94.1) Active confirmed Problem Dysuria (78416336) Dysuria (R30.0) Active confirmed Problem Female urinary stress incontinence (48126074) PAYAM (stress urinary incontinence, female) (N39.3) Active confirmed Problem Vaginal odor (755841057) Vaginal odor (N89.8) Active confirmed Problem Cigarette smoker (65744370) Cigarette smoker (F17.210) Active confirmed Problem Vaginal pain (68217378) Vaginal pain (R10.2) Active confirmed Problem Constipation (66017095) Constipation (K59.00) Active confirmed Problem Vaginal discharge (193236265) Vaginal discharge (N89.8) Active confirmed Problem Female pelvic inflammatory disease (069513822) PID (pelvic inflammatory disease) (N73.9) Active confirmed Plan Of Treatment Pending Test Test Name Order Date Estradiol Level 35882 02/20/2020 Follicle Stimulating Hormone (FSH) 78220 02/20/2020 SYPHILIS TEST, QUAL (RPR) 31493 02/20/20 20 Thyroid Stimulating Hormone (TSH) 51269 02/20/2020 HIV 1/2 Ag/Ab Screen--40615,55855 2019 Insurance Providers Payer Name Payer Address Payer Phone Subscriber Number Group Number Insured Name Patient Relationship to Insured Coverage Start Date Coverage End Date [place] Medicaid [address] [place] [phone] [id number] Ирина Cooper Self - patient is the insured 0 [place] Medicaid [address] [place] [phone] [id number] Ирина Cooper Self - patient is the insured 0 Medications Administered Medication Instructions Date of Administration Dosage Notes Ceftriaxone 07/04/2020 1 g Medical (General) History Medical History History ICD Code Morbid obesity Tobacco user Surgical History Surgery Date(Month/Year) left oophorectomy kidney stone 2019 tonsillectomy 2000 right finger 1994 Hospitalization History Reason Date(Month/Year) see surgical list
--- OUTSIDE RECORDS SUMMARY | 2025-05-18 22:19 | XMS_ITS | Encounter Summary ---
Author Organization [facility] Address [address] [place] [address] Care Team Providers Care Workers' Compensation Claims Examiner Name Role Phone Nazario Tovar DO Primary Care Provider [phone] Encounter Details Date Type Department Care Team (Late st Contact Info) Description 07/07/2004 Emergency [facility] Emergency Department [address] 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
--- OUTSIDE RECORDS SUMMARY | 2025-05-18 22:20 | XMS_ITS | Clinical Summary ---
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
--- OUTSIDE RECORDS SUMMARY | 2025-05-18 22:20 | XMS_ITS | Clinical Summary ---
Author Organization [facility] Address [address] [place] [address] Phone Care Team Providers Care Director Of Student Services Name Role Phone Unavailable Primary Care Provider [...] on file Legal Sex Female 3:13 AM EMERGENCY RESPONSE COORDINATOR Gender Identity Not on file Sexual Orientation [...] (195 lb 9.6 oz) 10/08/2018 12:00 AM EMERGENCY RESPONSE COORDINATOR Height 170.2 cm (5' 7 ) 10/08/2018 12:00 AM EMERGENCY RESPONSE COORDINATOR Body Mass Index 30.64 10/08/2018 12:00 AM EMERGENCY RESPONSE COORDINATOR Plan of Treatment Health Maintenance Due Date [...] Advance Directives For more information, please contact: [phone] * Full Code (Latest Code Status on File) Date Activated Date Inactivated Comments 10/08/2018 1:06 AM 10/12/2018 2:32 PM
--- OUTSIDE RECORDS SUMMARY | 2025-05-18 22:20 | XMS_ITS | Patient Health Record ---
Author Organization [facility] Address [address] [place] [id number] Care Team Providers Care Screener Operator Name Role Phone Gary Adilia Primary Care Provider Allergies Allergen (clinical drug ingredient) Drug/Non Drug Allergy documented on EMR Reaction Allergy Type Onset Date Status Penicillin G Benzathine Unknown Drug Allergy Active Reason For Referral No Information Medications Medication SIG (Take, Route, Frequency, Duration) Notes Start Date End Date Status Citalopram Hydrobromide 40 MG Oral; Duration: 30 days [facility] Not-Taking Tessalon Perles 100 MG 1 capsule [...] W/U Status Risk Notes Problem Social phobia (10956058) Social phobia (300.23) Active confirmed Problem Infectious hepatitis (02520343) Hepatitis in other infectious diseases classified elsewhere (573.2) Active confirmed Problem Anemia (156690160) Anemia, unspecified (285.9) Active confirmed Problem Gastroesophageal reflux disease (164276122) GERD (gastroesophageal reflux disease) (K21.9) Active confirmed Problem Obesity (184477801) Obesity (E66.9) Active conf irmed Problem Dysmenorrhea (044780918) Dysmenorrhea (N94.6) Active confirmed Problem Hallucinations (7783345) Hallucinations (R44.3) Active confirmed Problem Primary insomnia (9447544) Primary insomnia (F51.01) Active confirmed Problem Insomnia (785987129) Insomnia, unspecified type (G47.00) Active confirmed Problem Migraine without aura (98891342) Migraine without aura and with status migrainosus, not intractable (G43.001) Active confirmed Problem Chronic hepatitis C (893394496) Chronic hepatitis C without hepatic coma (B18.2) Active confirmed Problem Methamphetamine abuse (368361803) Methamphetamine abuse (F15.10) Active confirmed Plan Of Treatment No Information Insurance Providers Payer Name Payer Address Payer Phone Subscriber Number Group Number Insured Name Patient Relationship to Insured Coverage Start Date Coverage End Date [employer] [address] [place] [id number] Ирина Cooper Self - patient is the insured Medicaid [address] [place] [id number] Ирина Cooper Self - patient is the insured Medications Administered Medication Instructions Date of Administration Dosage Notes Toradol 06/21/2015 60 mg Toradol 04/09/2020 60 mg Medical (General) History Surgical History Surgery Date(Month/Year) tonsillectomy finger surgery Hospitalization History Reason Date(Month/Year) surgery childbirth
[2025-05-18 22:29] VITALS: PULSE 90; RESP 18; TEMP 36.4; O2SAT 98; BMI 32.1
[2025-05-18 22:49] LABS: Glucose Urine UA Negative (Normal); Nitrate Urine Negative (Negative); Specific Gravity, Urine 1.019 (1.005-1.030)
[2025-05-18 22:54] LABS: Add Urine Microscopic? YES
--- NOTE | 2025-05-19 00:58 | ED_ITS ---
HPI - Headache 2 General: Chief Complaint: Headache Stated Complaint: n/v neck pain headache Time Seen by Provider: 05/19/25 00:47 Source: patient Mode of arrival: ambulatory Limitations: no limitations History of Present Illness: 34-year-old female states she has a hist ory of migraines states she had had a migraine started yesterday and worsened today. States that feels like her typical migraines is currently a 9 out of 10 does have photophobia and phonophobia has some nausea. She denies any fevers denies any change in vision. Related Data Home Medications ?Medication ?Instructions ?Recorded ?Confirmed tirzepatide (weight loss) 7.5 7.5 mg SUBCUT Q7D 05/16/25 mg/0.5 mL subcutaneous pen injector diclofenac sodium 75 mg 75 mg PO BID PRN Pain 05/16/25 tablet,delayed release methocarbamol 500 mg tablet 1,000 mg PO Q8H 05/16/25 1 quetiapine 100 mg tablet 100 mg PO DAILY 05/16/25 quetiapine 50 mg tablet 50 mg PO DAILY 05/16/2505/02 rimegepant 75 mg disintegrating 75 mg PO .every 48 tessa rs PRN 05/16/25 05/16/25 tablet (Nurtec ODT) Migraine Headache Previous Rx's ?Medication ?Instructions ?Recorded norelgestromin 150 mcg-e.estradiol 1 patch transdermal Q7D #3 ea 11/08/24 35 mcg/24 hr weekly transderm patch (Xulane) risperidone 1 mg tablet 1 mg PO BID #60 tabs 5 Allergies Allergy/AdvReac Type Severity Reaction Status Date / Time Penicillins Allergy unknown Verified 05/18/25 22:31 Review of Systems 2 Neuro: Reports: headache(s) PFSH ED 2 PFSH: Medical History Psychiatric care History of endometriosis Migraine Insomnia Anxiety and depression Schizophrenia Surgical History Hx laparoscopic cholecystectomy History of amputation of finger partial; right hand digit 5 History of tonsillectomy History of oophorectomy removed right side from endometriosis Social History Smoking and tobacco/nicotine status: current every day tobacco/nicotine user (1.5 PPD) Physical Exam 2 Const: COMMON NORMALS: no acute distress, patient oriented x3 and healthy appearing HENMT: COMMON NORMALS: normocephalic and atraumatic HEAD & SCALP: n ormocephalic and atraumatic Eye: COMMON NORMALS: Equal, round and reactive pupils present and EOMs intact bilaterally PUPIL: Yes Equal, round and reactive pupils present Neck/C-Spine: COMMON NORMALS: full ROM and supple Chest: COMMONS NORMALS: normal inspection of the chest Resp: COMMON NORMALS: normal respiratory effort Cardio: COMMON NORMALS: regular rate, regular rhythm and No murmurs present (Cardio) RATE: regular rate RHYTHM: regular rhythm Extremity: COMMON NORMALS: normal to inspection and full ROM Neuro: COMMON NORMALS: patient oriented x3, moves all extremities and no focal motor deficits Psych: COMMON NORMALS: mental status grossly normal, Normal thought process present and cooperative THOUGHT PROCESS: Normal thought process present Skin: COMMON NORMALS: no rashes or lesions noted and no wounds GENERAL SKIN EXAM: no rashes or lesions noted Course 2 Vital Signs: Vital signs: Vital Signs Temperature 97.5 F L 05/18/25 22:29 Pulse Rate 80 05/19/25 02:26 Respiratory Rate 17 05/19/25 01:56 Blood Pressure 120/69 05/19/25 02:26 Pulse Oximetry 99 05/19/25 02:26 Oxygen Delivery Me thod Room Air 05/19/25 02:26 MDM - Headache Medical Decision Making Patient presents for the headaches going on for 2 days. Serious etiologies were included in differential including subarachnoid hemorrhage along with meningitis. Patient has no signs of these her white count here is normal no neck stiffness her headache began gradually and worsened he does have a long history of migraines and this is like her previous migraines. Is likely a migraine headache has resolved. Reglan Benadryl Toradol. Did review her labs with her which were normal she is stable for discharge she is follow-up with PCP and return if worsening she understands agrees to plan Medical Records I reviewed the patient's medical records. Lab Data I reviewed the patient's lab results. 05/18/25 00:56 05/18/25 00:56 Laboratory Results WBC 8.20 10^3/uL (3.29-11.43) 05/18/25 00:56 RBC 4.51 10^6/uL (3.85-5.65) 05/18/25 00:56 Hgb 12.90 g/dL (11.27-16.99) 05/18/25 00:56 Hct 39.4 % (36-47) 05/18/25 00:56 MCV 87.4 fl (85-98) 05/18/25 00:56 MCH 28.6 pg (27-33) 05/18/25 00:56 MCHC 32.7 g/dL (30-55) 05/18/25 00:56 RDW 14.4 % (12.1-15.1) 05/18/25 00:56 Plt Count 204 10^3/cmm (157-399) 05/18/25 00:56 MPV 12.5 fL (7.4-10.4) H 05/18/25 00:56 Neut % (Auto) 80.2 % 05/18/25 00:56 Lymph % (Auto) 13.8 % 05/18/25 00:56 [place] % (Auto) 3.8 % 05/18/25 00:56 Eos % (Auto) 1.6 % 05/18/25 00:56 Baso % (Auto) 0.2 % 05/18/25 00:56 Neut # (Auto) 6.58 10^3/uL (1.8-7.7) 05/18/25 00:56 Lymph # (Auto) 1.1 10^3/uL (0.8-4.8) 05/18/25 00:56 [place] # (Auto) 0.3 10^3/uL (0.2-0.9) 05/18/25 00:56 Eos # (Auto) 0.1 10^3/uL (0.0-0.8) 05/18/25 00:56 Baso # (Auto) 0.0 10^3/uL (0.0-0.1) 05/18/25 00:56 Nucleated RBC % (auto) 0 % 05/18/25 00:56 Nucleated RBCs # 0.0 /100WBC 05/18/25 00:56 Sodium 138 mmol/L (136-145) 05/18/25 00:56 Potassium 4.0 mmol/L (3.5-5.1) 05/18/25 00:56 Chloride 102 mmol/L (98-107) 05/18/25 00:56 Carbon Dioxide 23 mmol/L (22-29) 05/18/25 00:56 Anion Gap 17.0 (5-19) 05/18/25 00:56 BUN 8 mg/dL (6-20) 05/18/25 00:56 Creatinine 0.9 mg/dL (0.5-0.9) 05/18/25 00:56 GFR Calculation 71.3 mL/min (90-130) L 05/18/25 00:56 Glucose 92 mg/dL (65-115) 05/18/25 00:56 Calculated Osmolality 284 mOsm/kg (285-295) L 05/18/25 00:56 Calcium 9.1 mg/dL (8.5-10.5) 05/18/25 00:56 Total Bilirubin 0.2 mg/dL (0.15-1.2) 05/18/25 00:56 AST 18 U/L (0-32) 05/18/25 00:56 ALT 18 U/L (0-33) 05/18/25 00:56 Alkaline Phosphatase 90 U/L (35-105) 05/18/25 00:56 Total Protein 7.7 g/dL (6.6-8.7) 05/18/25 00:56 Albumin 4.2 g/dL (3.5-5.2) 05/18/25 00:56 Globulin 3.5 g/dL (1.3-4.6) 05/18/25 00:56 Lipase 16 U/L (13-60) 05/18/25 00:56 HCG, Qual Negative (Negative) 05/19/25 00:56 Urine Color Yellow (Yellow) 05/18/25 22:35 Urine Appearance Clear (CLEAR) 05/18/25 22:35 Urine pH 5.5 (5-7) 05/18/25 22:35 Ur Specific [place] 1.019 (1.005-1.030) 05/18/25 22:35 Urine Protein Negative (Negative) 05/18/25 22:35 Urine Glucose (UA) Negative (Normal) 05/18/25 22:35 Urine Ketones Negative (Negative) 05/18/25 22:35 Urine Blood 2+ (Negative) A 05/18/25 22:35 Urine Nitrate Negative (Negative) 05/18/25 22:35 Urine Bilirubin Negative (Negative) 05/18/25 22:35 Urine Urobilinogen 0.2 mg/dL (Negative) 05/18/25 22:35 Ur Leukocyte Esterase Negative (Negative) 05/18/25 22:35 Urine RBC 11-20 /hpf (0-2) H 05/18/25 22:35 Urine WBC 0-5 /hpf (0-5) 05/18/25 22:35 Ur Squamous Epith Cells 0-5 /hpf (0-5) 05/18/25 22:35 Amorphous Sediment Not Reportable 05/18/25 22:35 Urine Bacteria None seen /hpf (NONE) 05/18/25 22:35 Hyaline Casts 0.81 /lpf 05/18/25 22:35 No radiology studies performed this visit Discharge Plan Discharge Patient Disposition: Home Clinical Impression: Migraine Condition: Stable Prescriptions: No Action norelgestromin-ethin.estradiol [Xulane] 150-35 mcg/24 hr patch weekly 1 patch transdermal Q7D Qty: 3 10RF Rx Instructions: allow for early refills for continuous cycling risperidone 1 mg tablet 1 mg PO BID Qty: 60 1RF tirzepatide (weight loss) 7.5 mg/0.5 mL pen injector 7.5 mg SUBCUT Q7D Rx Instructions: Wednesday quetiapine 100 mg tablet 100 mg PO DAILY Rx Instructions: along with 50mg [id number] total daily. methocarbamol 500 mg tablet 1,000 mg PO Q8H diclofenac sodium 75 mg tablet,delayed release (DR/EC) 75 mg PO BID PRN (Reason: Pain) quetiapine 50 mg tablet 50 mg PO DAILY Rx Instructions: along with 100mg [id number] total daily. Nurtec ODT 75 mg tablet,disintegrating 75 mg PO .every 48 hours PRN (Reason: Migraine Headache) Discharge Orders: Discharge ED (Routine); Ordered 05/19/25 Ordered By: Waqas Salinas Referrals: Yaneli Rojas, [employer]IC [Primary Care Provider, Family Practice] - 4-7 days Discharge Diet: Advance as tolerated Discharge Activity: Resume usual activity Patient Instructions: Migraine Headache (ED) Print Language: Angolan Coding Level of Care Code ED Farm Equipment Operator for Ericka Howell
[2025-05-19 01:09] LABS: Hematocrit 39.4 % (36-47); Hemoglobin 12.90 g/dL (11.27-16.99); Mean Corpuscular HGB Conc 32.7 g/dL (30-55); Mean Corpuscular Hemoglobin 28.6 pg (27-33); Mean Corpuscular Volume 87.4 fl (85-98); Nucleated Red Blood Cells % 0 %; Platelet Count 204 10^3/cmm (157-399); Red Blood Count 4.51 10^6/uL (3.85-5.65); White Blood Count 8.20 10^3/uL (3.29-11.43)
[2025-05-19] MEDS: metoclopramide 5 mg/mL SDV 2 mL 10 MG IVP (01:14)
[2025-05-19] MEDS: diphenhydrAMINE 50 mg/mL SDV 1mL IVP (01:15)
[2025-05-19 01:26] LABS: Alanine Aminotransferase 18 U/L (0-33); Albumin Level 4.2 g/dL (3.5-5.2); Alkaline Phosphatase 90 U/L (35-105); Anion Gap 17.0 (5-19); Aspartate Amino Transferase 18 U/L (0-32); Blood Urea Nitrogen 8 mg/dL (6-20); Calcium 9.1 mg/dL (8.5-10.5); Carbon Dioxide 23 mmol/L (22-29); Chloride 102 mmol/L (98-107); Creatinine Clr Calc Pharmacy 102.1340; Globulin 3.5 g/dL (1.3-4.6); Glucose 92 mg/dL (65-115); Lipase 16 U/L (13-60); Osmolality Calculated 284 mOsm/kg (285-295); Potassium 4.0 mmol/L (3.5-5.1); Sodium 138 mmol/L (136-145); Total Protein 7.7 g/dL (6.6-8.7)
[2025-05-19 01:56] VITALS: RESP 17; O2SAT 98
[2025-05-19] MEDS: morphine 4 mg/mL SDV 1 mL IVP (01:56)
[2025-05-19 02:05] LABS: HCG, Serum Qual Negative (Negative)
[2025-05-19 02:26] VITALS: BP 120/69; PULSE 80; O2SAT 99
[2025-05-19 02:37] LABS: Add RBC Morph Yes
[2025-05-19 02:38] LABS: RBC Morph Comp No
[2025-05-19 02:43] LABS: Slide Review Slide Review Perform
[2025-05-19 03:06] VITALS: PULSE 80; O2SAT 99
== END 2025-05-19 03:08 | disposition home or self-care (01) ==
PROVIDERS: Emergency Provider Emergency Medicine; PCP Nurse Practitioner Family
DX: G43.909 Migraine, unspecified, not intractable, without status migrainosus (principal); F17.210 Nicotine dependence, cigarettes, uncomplicated
CPT/HCPCS: 80053; 81001; 83690; 84703; 85025; 96361; 96374; 96375; 99284; J1200; J1885; J2270; J2765; J7030